=== PATIENT | female | born 1950 | race Caucasian/White ===

== ENCOUNTER 2024-08-28 12:22 | Emergency (ER) | payer MEDICARE, SELFPAY ==
[2024-08-28] VITALS (11 sets, daily range): BP systolic 110–134; BP diastolic 55–93; PULSE 70–93; RESP 14–24; TEMP 36.8; O2SAT 94–100; BMI 24.7
[2024-08-28] MEDS: ONDANSETRON 4 MG/2 ML INJ IV (12:52)
[2024-08-28] MEDS: SODIUM CHLORIDE 0.9% 1,000 ML 1000 ML IV (12:55)
--- NOTE | 2024-08-28 12:56 | EKG_ITS ---
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
[2024-08-28 13:05] LABS: Add Manual Diff / Slide Review NO; Basophils Absolute Auto 0 /uL (0-100); Basophils Percent Auto 0.6 % (0-2); Eosinophils Absolute Auto 0 /uL (0-450); Eosinophils Percent Auto 0.2 % (2-4); Hematocrit 42.1 % (36-46); Hemoglobin 14.3 g/dL (12.0-16.0); Lymphocytes Absolute Auto 1100 /uL (1100-4500); Lymphocytes Percent Auto 16.9 % (25-40); Mean Corpuscular HGB Conc 33.9 % (30-36); Mean Corpuscular Hemoglobin 31.3 PG (26-34); Mean Corpuscular Volume 92.1 fL (80-100); Monocytes Absolute Auto 100 /uL (0-900); Monocytes Percent Auto 2.2 % (3-14); Neutrophils Absolute Auto 5200 /uL (1500-7000); Neutrophils Percent Auto 80.1 % (50-75); Platelet Count 243 X10^3/uL (150-400); Red Blood Cell Count 4.57 X10^6/uL (4.0-5.2); Red Cell Distribution Width 12.7 % (11.6-14.8); White Blood Cell Count 6.5 X10^3/uL (4.5-11.0)
[2024-08-28 13:09] LABS: Alanine Aminotransferase 70 IU/L (<35); Albumin 4.8 g/dL (3.5-5.0); Albumin Globulin Ratio 1.7 (1.0-2.8); Alkaline Phosphatase 102 U/L (38-126); Aspartate Aminotransferase 47 IU/L (14-36); BUN Creatinine Ratio 26.9 (6-22); Bilirubin Total 0.4 mg/dL (0.2-1.3); Blood Urea Nitrogen 18 mg/dL (7-17); Calcium 9.5 mg/dL (8.4-10.2); Carbon Dioxide 24 mmol/L (22-32); Chloride 113 mmol/L (98-107); Estimated Glomerular Filt Rate > 60 mL/min (>60); Globulin 2.8 g/dL (1.7-4.1); Glucose 136 mg/dL (80-110); HEMOLYSIS < 15 (0-50); Lipase 147 U/L (23-300); Potassium 3.9 mmol/L (3.4-5.1); Sodium 145 mmol/L (137-145); Total Protein 7.6 g/dL (6.3-8.2)
[2024-08-28] MEDS: PANTOPRAZOLE 40 MG VIAL IV (13:09)
[2024-08-28] MEDS: LORazepam 2 MG/ML INJ 1 MG IV (13:09)
[2024-08-28 13:21] LABS: Ethanol (ETOH) < 10 mg/dL
--- NOTE | 2024-08-28 14:32 | ED.GENADULT ---
HPI - General Adult General Chief complaint: Abdominal Pain Stated complaint: Can't Keep Anything Down, Dehydrated Time Seen by Provider: 08/28/24 12:43 Source: patient Mode of arrival: Ambulatory History of Present Illness HPI narrative: 73-year-old woman presents complaining of vomiting since she woke up this morning. She notes that last night she had a girl's night which they had glaucoma Hess, chips and a few drinks. She denies any blood in the emesis, is not having any dysuria, abdominal pain is focused around the epigastrium she complains of dehydration and continued nausea Related Data Previous Rx's Medication Instructions Recorded ondansetron 4 mg disintegrating 4 mg PO Q8H PRN nausea and 08/28/24 tablet vomiting #14 tabs Allergies Allergy/AdvReac Type Severity Reaction Status Date / Time No Known Drug Allergies Allergy Verified 08/28/24 12:34 Review of Systems Review of Systems Narrative: Pertinent positive and negative findings as per HPI Patient History alcohol intake frequency: holidays/special occasions only Substance Use Type: does not use Exam Initial Vital Signs Initial Vital Signs: Vital Signs Temperature 98.2 F 08/28/24 12:29 Pulse Rate 93 H 08/28/24 12:29 Respiratory Rate 14 08/28/24 12:29 Blood Pressure 132/93 H 08/28/24 12:29 Pulse Oximetry 99 08/28/24 12:29 Oxygen Delivery Method Room Air 08/28/24 12:29 General: Appears to feel unwell, nauseated but not actively vomiting at this time Able to give a complete and coherent history. HEENT: Moist mucous membranes, normal sclera with reactive pupils, Respiratory: Lungs are clear to auscultation, no wheezing no rales no rhonchi. Full and symmetrical air movement Cardiac: Regular rate and rhythm no murmurs no bruits Abdomen: Soft, epigastric tenderness without rebound or guarding. No left upper quadrant pain, Skin: Warm and dry, no rashes Neurologic: Grossly neurologically intact with no obvious asymmetries or abnormalities Extremities: No trauma, well perfused Psych: Cooperative, appropriate insight and affect Course Orders Ordered: ED Orders 08/28/24 12:34 EKG-12 Lead Stat 08/28/24 12:45 Complete Blood Count AUTO DIFF Stat Comprehensive Metabolic Panel Stat ETOH [Ethanol (ETOH)] Stat Lipase Stat 08/28/24 15:42 Urine Culture Stat Urine Microscopic Stat Ondansetron HCl (Ondansetron 4 Mg/2 Ml Inj) 4 mg IV NOW PRN PRN Reason: Nausea And Vomiting Last Admin: 08/28/24 12:52 Dose: 4 mg Documented By: PEEWEE Ondansetron HCl (Ondansetron 4 Mg Odt) 4 mg PO NOW PRN PRN Reason: Nausea And Vomiting Discontinued Medications Sodium Chloride (Normal Saline 0.9%) 1,000 mls @ 1,000 mls/hr IV BOLUS ONE Stop: 08/28/24 13:51 Last Infusion: 08/28/24 14:03 Dose: Infused Documented By: Admin: 08/28/24 12:55 Dose: 1,000 mls/hr Documented By: PEEWEE Lorazepam (Lorazepam 2 Mg/Ml Inj) 1 mg IV NOW ONE Stop: 08/28/24 12:53 Last Admin: 08/28/24 13:09 Dose: 1 mg Documented By: PEEWEE Pantoprazole Sodium (Pantoprazole 40 Mg Vial) 40 mg IV NOW ONE Stop: 08/28/24 12:53 Last Admin: 08/28/24 13:09 Dose: 40 mg Documented By: PEEWEE Vital Signs Vital signs: Vital Signs - 8 hr 08/28/24 12:29 08/28/24 12:41 08/28/24 12:44 Temperature 98.2 F Pulse Rate 93 H 85 88 Respiratory Rate 14 22 Blood Pressure 132/93 H Pulse Oximetry 99 97 97 Oxygen Delivery Method Room Air Room Air 08/28/24 12:44 08/28/24 13:00 08/28/24 13:01 Temperature Pulse Rate 77 79 Respiratory Rate 22 20 Blood Pressure 134/83 Pulse Oximetry 100 99 Oxygen Delivery Method Room Air 08/28/24 13:01 08/28/24 13:30 08/28/24 13:30 Temperature Pulse Rate 70 Respiratory Rate 20 Blood Pressure 130/62 133/61 Pulse Oximetry 99 Oxygen Delivery Method Room Air 08/28/24 14:00 08/28/24 14:00 08/28/24 14:30 Temperature Pulse Rate 75 75 Respiratory Rate 14 24 Blood Pressure 110/55 L Pulse Oximetry 94 98 Oxygen Delivery Method 08/28/24 14:30 08/28/24 15:00 08/28/24 15:00 Temperature Pulse Rate 77 Respiratory Rate 21 Blood Pressure 132/64 126/63 Pulse Oximetry 99 Oxygen Delivery Method 08/28/24 15:30 08/28/24 15:30 Temperature Pulse Rate 75 Respiratory Rate Blood Pressure 128/67 Pulse Oximetry 98 Oxygen Delivery Method Medical Decision Making Lab Data 08/28/24 12:45 08/28/24 12:45 Labs: Lab Results 08/28/24 08/28/24 Range/Units 12:45 15:42 WBC 6.5 (4.5-11.0) X10^3/uL RBC 4.57 (4.0-5.2) X10^6/uL Hgb 14.3 (12.0-16.0) g/dL Hct 42.1 (36-46) % MCV 92.1 (80-100) fL MCH 31.3 (26-34) PG MCHC 33.9 (30-36) % RDW 12.7 (11.6-14.8) % Plt Count 243 (150-400) X10^3/uL Neut % (Auto) 80.1 H (50-75) % Lymph % (Auto) 16.9 L (25-40) % [place] % (Auto) 2.2 L (3-14) % Eos % (Auto) 0.2 L (2-4) % Baso % (Auto) 0.6 (0-2) % Neut # (Auto) 5200 (1924-5857) /uL Lymph # (Auto) 1100 (7522-8405) /uL [place] # (Auto) 100 (0-900) /uL Eos # (Auto) 0 (0-450) /uL Baso # (Auto) 0 (0-100) /uL Sodium 145 (137-145) mmol/L Potassium 3.9 (3.4-5.1) mmol/L Chloride 113 H (98-107) mmol/L Carbon Dioxide 24 (22-32) mmol/L BUN 18 H (7-17) mg/dL Creatinine 0.67 (0.52-1.04) mg/dL Estimated GFR > 60 (>60) mL/min BUN/Creatinine Ratio 26.9 H (6-22) Glucose 136 H (80-110) mg/dL Calcium 9.5 (8.4-10.2) mg/dL Total Bilirubin 0.4 (0.2-1.3) mg/dL AST 47 H (14-36) IU/L ALT 70 H (<35) IU/L Alkaline Phosphatase 102 (38-126) U/L Total Protein 7.6 (6.3-8.2) g/dL Albumin 4.8 (3.5-5.0) g/dL Globulin 2.8 (1.7-4.1) g/dL Albumin/Globulin Ratio 1.7 (1.0-2.8) Lipase 147 (23-300) U/L Urine RBC 0-1/hpf (0-5/HPF) Urine WBC 0-1/hpf (0-5/HPF) Ur Squamous Epith Cells 1-5 /hpf (0-5/HPF) Ur Transition Epith Cell 0-1/hpf (0-5/HPF) Urine Bacteria Few (2-10) H (None) Hyaline Casts 0-1/lpf (None) Urine Mucus 4+ H (Negative) Urine Yeast 0-1/hpf (None) Ur Culture Indicated? Specimen cultured Vol Urine Centrifuged 10ml (spun) Ethyl Alcohol < 10 ( - 10) mg/dL Urine Dip Bedside Urine Glucose Negative Bedside Urine Bilirubin - Negative Bedside Urine Ketone - Negative Urine Specific [place] 1.015 Bedside Urine Occult Blood +/- Bedside Urine pH 6.5 Bedside Urine Protein +/- 15 Bedside Urine Urobilinogen - Negative Bedside Urine Nitrite - Negative Bedside Urine Leukocytes +/- 15 Esterase Point of care testing: Urine Dip Bedside Urine Glucose Negative Bedside Urine Bilirubin - Negative Bedside Urine Ketone - Negative Urine Specific [place] 1.015 Bedside Urine Occult Blood +/- Bedside Urine pH 6.5 Bedside Urine Protein +/- 15 Bedside Urine Urobilinogen - Negative Bedside Urine Nitrite - Negative Bedside Urine Leukocytes +/- 15 Esterase [facility] Narrative Medical decision making narrative: CC: Nausea and vomiting Complicating co-morbidities: Notes that she was drinking last night which sounds like it is not a regular occurrence Data collected from: patient, friend Differential considered: Dehydration, pancreatitis, gastritis, bowel obstruction Exam documented above, pertinent findings include: Patient appears uncomfortable, mild epigastric pain without rebound or guarding Lab Test results independently reviewed as above. Pertinent findings: CBC is unremarkable Chemistries show normal renal function, glucose minimally elevated at 136. Minimal elevation of AST at 47 and ALT at 70. Lipase is unremarkable Independently reviewed EKG: Sinus rhythm at a rate of 82 no acute ischemic changes Treatments: IV fluids, Zofran Discussion: Patient was feeling much better after fluids and Zofran. Reviewed labs with her. At this point I am not seeing any evidence of acute surgical abdomen, pancreatitis, gastritis, upper GI bleeding. I think that she is correct that her symptoms are related to 1 more drink than she likely should have had last night. At this point there was no indication for additional imaging or hospitalization. Zofran prescription will be called into [facility]. Questions are answered and she is safe for discharge Discharge Plan Departure Patient Disposition: Home Clinical Impression: Nausea & vomiting Qualifiers: Vomiting type: unspecified Qualified Code(s): R11.2 - Nausea with vomiting, unspecified Instructions: DI for Nausea -- Adult Activity Restrictions/Additional Instructions: Thank you for coming in today You received a L of IV fluid and Zofran along with some Protonix which is an IV stomach acid reduction medication There was no sign of bleeding, surgical problems in your belly, liver or kidney abnormalities. 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 However. if you find that you are getting worse or develop any new symptoms, please feel free to return to the emergency department for further evaluation. Prescriptions: New ondansetron 4 mg tablet,disintegrating 4 mg PO Q8H PRN (Reason: nausea and vomiting) Qty: 14 0RF Stand Alone Forms: Patient Portal/API/Survey
--- NOTE | 2024-08-28 15:48 | PC.NURSE ---
Assumed care of pt at 1548. Pt ambulated to bathroom independently and states that she feels much better.
[2024-08-28 16:07] LABS: Bacteria Urine Few (2-10); Culture Indicated Urine Specimen Cultured; Hyaline Casts Urine 0-1/LPF; Mucus Urine 4+ (Negative); RBC Urine 0-1/HPF (0-5/HPF); Squamous Epithelial Cell Urine 1-5 /HPF (0-5/HPF); Transitional Epi Cells Urine 0-1/HPF (0-5/HPF); Urine Volume 10mL (spun); WBC Urine 0-1/HPF (0-5/HPF)
== END 2024-08-28 16:29 | disposition home or self-care (01) ==
PROVIDERS: Emergency Provider Emergency Medicine
DX: R11.2 Nausea with vomiting, unspecified (principal); R10.13 Epigastric pain; R79.89 Other specified abnormal findings of blood chemistry
CPT/HCPCS: 36415; 80053; 80320; 81003; 81015; 83690; 85025; 87086; 93005; 96361; 96374; 96375; 99284; J2060; J2405; J2470